=== PATIENT | male | born 1990 | race Caucasian/White ===

== ENCOUNTER 2017-10-31 19:25 | Emergency (ER) | payer OTHER ==
[2017-10-31 19:37] VITALS: TEMP 98.8; O2SAT 99
[2017-10-31] MEDS ORDERED: Naproxen 500 MG TAB PO STA (20:43)
[2017-10-31] MEDS ORDERED: Naproxen 500 MG TAB PO ONE (21:06)
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
[2017-10-31 22:31] VITALS: BP 134/78; PULSE 89; RESP 15
--- NOTE | 2017-11-01 11:20 | RAD ---
PROCEDURE: Cervical Spine Radiographs. HISTORY: Pain. COMPARISON: None. FINDINGS: BONES: Alignment maintained. No acute fracture or destructive bony lesion identified. Dens Intact. DISC SPACES: Normal. SOFT TISSUES: No prevertebral soft tissue swelling. OTHER FINDINGS: None. IMPRESSION: Unremarkable cervical spine radiographs. If symptoms persist or worsen follow-up CT or MRI may be considered.
== END 2017-10-31 22:31 | disposition home or self-care (01) ==
LOC: H.ER 19:25
DX: S16.1XXA Strain of muscle, fascia and tendon at neck level, initial encounter (principal); S60.811A Abrasion of right wrist, initial encounter; V43.52XA Car driver injured in collision with other type car in traffic accident, initial encounter; Y92.410 Unspecified street and highway as the place of occurrence of the external cause